=== PATIENT | female | born 1990 | race Caucasian/White ===

== ENCOUNTER → 2019-10-12 11:07 | Outpatient (BNVA) | payer BC, SELFPAY | PROVIDERS: Referring Provider Nurse Practitioner Family; Visit Provider Nurse Practitioner Family | DX: N39.0 Urinary tract infection, site not specified (principal) | CPT/HCPCS: 81000 ==

== ENCOUNTER → 2020-04-25 13:37 | Outpatient (BNVA) | payer BC, SELFPAY | DX: R35.0 Frequency of micturition (principal) | CPT/HCPCS: 81000; 87086 ==

== ENCOUNTER → 2020-05-11 14:19 | Outpatient (BNVA) | payer BC, SELFPAY | PROVIDERS: Visit Provider Family Medicine | DX: R35.0 Frequency of micturition (principal); N30.21 Other chronic cystitis with hematuria; Z86.19 Personal history of other infectious and parasitic diseases | CPT/HCPCS: 81000; 81003 ==

== ENCOUNTER → 2021-07-25 09:49 | Outpatient (BNVA) | payer BC, SELFPAY | PROVIDERS: Visit Provider Family Medicine | DX: R53.83 Other fatigue (principal); R68.82 Decreased libido; R41.89 Other symptoms and signs involving cognitive functions and awareness; Z13.1 Encounter for screening for diabetes mellitus | CPT/HCPCS: 80053; 82607; 82652; 84443; 85025 ==

== ENCOUNTER → 2022-05-08 08:44 | Outpatient (BNVA) | payer BC, OTHER, SELFPAY | PROVIDERS: Visit Provider Family Medicine | DX: Z32.00 Encounter for pregnancy test, result unknown (principal); Z30.41 Encounter for surveillance of contraceptive pills; O02.81 Inappropriate change in quantitative human chorionic gonadotropin (hCG) in early pregnancy | CPT/HCPCS: 81025 ==

== ENCOUNTER → 2023-08-07 09:18 | Outpatient (BNVA) | payer BC, OTHER, SELFPAY | PROVIDERS: PCP Family Medicine; Visit Provider Family Medicine | DX: Z11.3 Encounter for screening for infections with a predominantly sexual mode of transmission (principal); Z12.4 Encounter for screening for malignant neoplasm of cervix | CPT/HCPCS: 81000; 87491; 87591; 87624; 87661 ==